=== PATIENT | female | born 1970 | race Native Hawaiian/Other Pacific Islander ===

== ENCOUNTER 2016-07-10 12:51 | Outpatient (CLI) | payer OTHER | END 2016-07-10 13:51 | disposition home or self-care (01) | LOC: US 12:51 | DX: N93.9 Abnormal uterine and vaginal bleeding, unspecified (principal) ==

== ENCOUNTER 2016-11-15 10:39 | Emergency (ER) | payer OTHER ==
[~2016-11-15] VITALS: Ht 152.4 cm; Wt 72.6 kg
[2016-11-15 10:45] VITALS: TEMP 98
[2016-11-15] MEDS ORDERED: ASA LOW DOSE81 MG OR (10:54)
[2016-11-15 11:17] LABS: PLATELET COUNT 216 K/uL (152-353)
[2016-11-15 11:24] LABS: POTASSIUM 4.1 mmol/L (3.6-5.2); SODIUM 140 mmol/L (136-145)
[2016-11-15 14:04] VITALS: BP 128/82
== END 2016-11-15 14:13 | disposition home or self-care (01) ==
LOC: ED 10:39
DX: A08.4 Viral intestinal infection, unspecified (principal)
CPT/HCPCS: 36591; 80053; 82150; 83690; 85027; 99283; Q9963

== ENCOUNTER 2016-12-18 16:22 | Emergency (ER) | payer OTHER ==
[~2016-12-18] VITALS: Ht 152.4 cm; Wt 78.9 kg
[~2016-12-18 16:22] MED LIST: ASA LOW DOSE81 MG OR
[2016-12-18 16:44] VITALS: BP 142/82; TEMP 97.8
== END 2016-12-18 17:16 | disposition home or self-care (01) ==
LOC: ED 16:22
DX: H66.91 Otitis media, unspecified, right ear (principal)
CPT/HCPCS: 99281

== ENCOUNTER 2017-07-06 11:39 | Emergency (ER) | payer OTHER ==
[~2017-07-06] VITALS: Ht 152.4 cm; Wt 79.4 kg
[2017-07-06 11:53] VITALS: BP 128/92; TEMP 98.4
== END 2017-07-06 12:30 | disposition home or self-care (01) ==
LOC: ED 11:39
DX: R11.10 Vomiting, unspecified (principal); R19.7 Diarrhea, unspecified
CPT/HCPCS: 99281

== ENCOUNTER 2019-08-20 14:52 | Emergency (ER) | payer BC, OTHER ==
[~2019-08-20] VITALS: Ht 152.4 cm; Wt 80.7 kg
[2019-08-20 16:57] VITALS: BP 152/95; TEMP 99.8
== END 2019-08-20 17:51 | disposition home or self-care (01) ==
LOC: ED 14:52
DX: J06.9 Acute upper respiratory infection, unspecified (principal); R05 Cough
CPT/HCPCS: 87502; 87651; 99283

== ENCOUNTER 2019-09-14 19:42 | Emergency (ER) | payer BC, OTHER ==
[~2019-09-14] VITALS: Ht 152.4 cm; Wt 80.7 kg
[2019-09-14 19:45] VITALS: TEMP 98
[2019-09-14 20:58] LABS: PLATELET COUNT 238 K/uL (152-353)
[2019-09-14 20:59] LABS: SODIUM 139 mmol/L (136-145)
[2019-09-14 21:08] LABS: PARTIAL THROMBOPLASTIN TIME 25.4 SECONDS (24.5-33.6)
[2019-09-14 21:59] VITALS: BP 133/77
== END 2019-09-14 22:09 | disposition home or self-care (01) ==
LOC: ED 19:42
PROVIDERS: Hospitalist
DX: R42 Dizziness and giddiness (principal)
CPT/HCPCS: 80053; 80320; 81000; 82550; 83880; 84484; 85027; 85610; 85730; 93005; 96360; 96375; 99284; J2405

== ENCOUNTER 2020-10-10 11:31 | Outpatient (CLI) | payer BC, OTHER | END 2020-10-10 22:20 | disposition home or self-care (01) | LOC: MAMMO 11:31 | PROVIDERS: ATTEND Family Medicine | DX: Z12.31 Encounter for screening mammogram for malignant neoplasm of breast (principal) ==

== ENCOUNTER 2021-11-28 09:35 | Outpatient (CLI) | payer BC, OTHER | END 2021-11-28 19:27 | disposition home or self-care (01) | LOC: RAD 09:35 | PROVIDERS: ATTEND Nurse Practitioner Primary Care | DX: R10.30 Lower abdominal pain, unspecified (principal) ==

== ENCOUNTER 2021-12-23 11:16 | Outpatient (CLI) | payer BC, OTHER ==
[2021-12-23 11:53] LABS: PLATELET COUNT 200 K/uL (152-353)
[2021-12-23 12:10] LABS: POTASSIUM 3.7 mmol/L (3.6-5.2)
== END 2021-12-23 19:15 | disposition home or self-care (01) ==
LOC: RESP 11:16
PROVIDERS: ATTEND Nurse Practitioner Family
DX: R07.89 Other chest pain (principal); R10.11 Right upper quadrant pain
CPT/HCPCS: 36415; 80053; 82150; 82550; 82553; 83690; 84484; 85027; 93005

== ENCOUNTER 2022-10-13 10:10 | Outpatient (CLI) | payer BC, OTHER ==
[~2022-10-13] VITALS: Ht 152.4 cm; Wt 82.1 kg
[2022-10-13 10:18] VITALS: BP 109/80; TEMP 98.1
== END 2022-10-13 19:13 | disposition home or self-care (01) ==
LOC: INF 10:10
PROVIDERS: ATTEND Family Medicine
DX: E86.0 Dehydration (principal)
CPT/HCPCS: 96360; 96361

== ENCOUNTER 2023-02-22 11:28 | Observation (INO) | payer BC, OTHER ==
[~2023-02-22] VITALS: Ht 152.4 cm; Wt 87.3 kg
[2023-02-22 11:50] VITALS: BP 147/79; TEMP 98.9
[2023-02-22 11:53] LABS: PLATELET COUNT 240 K/uL (152-353)
[2023-02-22 12:04] LABS: POTASSIUM 3.6 mmol/L (3.6-5.2)
[2023-02-22 13:00] VITALS: BP 110/76
[2023-02-22 19:49] VITALS: BP 106/77; TEMP 97.6; Ht 152.4 cm; Wt 87.3 kg
[2023-02-22 19:50] VITALS: BP 117/73; TEMP 98.1
[2023-02-22 23:39] VITALS: BP 115/70; TEMP 97.7
[2023-02-23 04:00] VITALS: BP 107/67; TEMP 97.7
[2023-02-23 05:10] LABS: POTASSIUM 3.9 mmol/L (3.6-5.2)
[2023-02-23 08:00] VITALS: BP 106/75; TEMP 98
[2023-02-23] MEDS ORDERED: ROSU10TA PO (10:57)
== END 2023-02-23 12:12 | disposition home or self-care (01) ==
LOC: ED 11:28 → MED/SURG 12:29
PROVIDERS: Family Medicine; ADMIT Internal Medicine Endocrinology, Diabetes & Metabolism; ATTEND Internal Medicine Endocrinology, Diabetes & Metabolism
DX: R07.89 Other chest pain (principal); E66.9 Obesity, unspecified
CPT/HCPCS: 36415; 80048; 80053; 80061; 84484; 85027; 93005; 96360; 99221; 99284; G0378

== ENCOUNTER 2023-03-19 13:50 | Outpatient (CLI) | payer BC, OTHER ==
[~2023-03-19 13:50] MED LIST changes: +ROSU10TA PO
== END 2023-03-19 19:21 | disposition home or self-care (01) ==
LOC: RESP 13:50
PROVIDERS: ATTEND Nurse Practitioner Family
DX: R07.89 Other chest pain (principal)

== ENCOUNTER 2023-03-22 08:26 | Outpatient (CLI) | payer BC, OTHER | END 2023-03-22 21:21 | disposition home or self-care (01) | LOC: NM 08:26 | PROVIDERS: ATTEND Nurse Practitioner Family | DX: R07.89 Other chest pain (principal) | CPT/HCPCS: A9500 ==